=== PATIENT | female | born 1940 | race American Indian/Alaskan Native ===

== ENCOUNTER 2017-12-28 12:58 | Emergency (ER) | payer MEDICARE ==
[2017-12-28 12:59] VITALS: BMI 31.2
--- NOTE | 2017-12-28 14:50 | ED PDOC ---
Arrival/HPI - General Chief Complaint: Weakness/Neurological Deficit Time Seen by Provider: 12/28/17 14:40 Historian: Patient - History of Present Illness Narrative History of Present Illness (Text): 12/28/17 14:45 Kaleigh Trevino is a 77 year old female, whose past medical history includes hypertension, breast CA, gastric ulcers, and cardiac stents, who presents to the emergency department complaining of chest pain worsened only by coughs for the past week. Patient states that she has had persistent coughs for the past 2 months. She reports that she has not seen her PMD. Patient denies any shortness of breath or any other complaint at this time. PMD: Dr. Langley 12/28/17 17:36 Time/Duration: < week Symptom Onset: Gradual Symptom Course: Unchanged Severity Level: Mild Activities at Onset: Light Context: Home Past Medical History - Provider Review Nursing Documentation Reviewed: Yes - Infectious Disease Hx of Infectious Diseases: None - Tetanus Immunization Tetanus Immunization: Unknown - Cardiac Hx Cardiac Disorders: Yes Hx Hypertension: Yes Hx Pacemaker: No - Pulmonary Hx Respiratory Disorders: Yes Hx Bronchitis: Yes - Neurological Hx Neurological Disorder: Yes (SYNCOPE 08-24-16) Hx Dizziness: Yes (08-29-16) - HEENT Hx HEENT Disorder: Yes (WEARS RX GLASSES) - Renal Hx Renal Disorder: No - Endocrine/Metabolic Hx Endocrine Disorders: Yes (hypoglycemia 07/02/14) - Hematological/Oncological Hx Blood Disorders: Yes Hx Cancer: Yes (right mastectomy) Hx Chemotherapy: Yes (and radiation over 10 yrs ago) - Integumentary Hx Dermatological Disorder: No - Musculoskeletal/Rheumatological Hx Musculoskeletal Disorders: Yes (LUMBAR SPONDYLOSIS) Hx Falls: Yes (08-29-16) - Gastrointestinal Hx Gastrointestinal Disorders: Yes Hx Gastroesophageal Reflux: Yes Other/Comment: SBO x 2 - Genitourinary/Gynecological Hx Genitourinary Disorders: Yes (ovarian cyst,RIGHT MASTECTOMY WITH CHEMO AND RADIATION) Hx Urinary Tract Infection: Yes - Psychiatric Hx Psychophysiologic Disorder: No Hx Emotional Abuse: No Hx Physical Abuse: No Hx Substance Use: No - Past Surgical History Past Surgical History: No Previous - Surgical History Hx Mastectomy: Yes (RIGHT) - Anesthesia Hx Anesthesia Reactions: No Hx Malignant Hyperthermia: No - Suicidal Assessment Feels Threatened In Home Enviroment: No Family/Social History - Physician Review Nursing Documentation Reviewed: Yes Family/Social History: No Known Family HX Smoking Status: Never Smoked Hx Alcohol Use: No Hx Substance Use: No Hx Substance Use Treatment: No Allergies/Home Meds Allergies/Adverse Reactions: Allergies No Known Allergies Allergy (Verified 08/29/16 18:21) Home Medications: Home Meds Medication Instructions Recorded Confirmed Amlodipine Besylate [Norvasc] 10 mg PO DAILY 06/24/16 09/01/16 Atenolol [Tenormin] 25 mg PO HS 06/24/16 09/01/16 Dexlansoprazole [Dexilant] 60 mg PO DAILY 06/24/16 09/01/16 Aspirin [Adult Low Dose Aspirin EC] 81 mg PO 09/01/16 Isosorbide Mononitrate [Imdur] 60 mg PO DAILY 09/01/16 09/01/16 Review of Systems - Review of Systems Constitutional: absent: Fevers, Night Sweats Eyes: absent: Vision Changes ENT: absent: Hearing Changes Respiratory: absent: SOB, Cough Cardiovascular: Chest Pain (with coughing only). absent: Palpitations, Edema, Calf Pain, ALLRED, Orthopnea, Syncope Gastrointestinal: absent: Abdominal Pain, Constipation, Diarrhea Genitourinary Female: absent: Dysuria, Frequency Musculoskeletal: absent: Arthralgias, Back Pain Skin: absent: Rash, Pruritis Neurological: absent: Headache Endocrine: absent: Diaphoresis Hemo/Lymphatic: absent: Adenopathy Psychiatric: absent: Anxiety Physical Exam Vital Signs Reviewed: Yes Vital Signs Temp Pulse Resp BP Pulse Ox 12/28/17 16:54 80 18 142/77 98 12/28/17 15:00 97.9 F 75 20 133/76 98 Temperature: Afebrile Blood Pressure: Normal Pulse: Regular Respiratory Rate: Normal Appearance: Positive for: Well-Appearing, Non-Toxic, Comfortable Pain Distress: None Mental Status: Positive for: Alert and Oriented X 3 - Systems Exam Head: Present: Atraumatic, Normocephalic Pupils: Present: PERRL Extroacular Muscles: Present: EOMI Conjunctiva: Present: Normal Mouth: Present: Moist Mucous Membranes Neck: Present: Normal Range of Motion Respiratory/Chest: Present: Clear to Auscultation, Good Air Exchange. No: Respiratory Distress, Accessory Muscle Use Cardiovascular: Present: Regular Rate and Rhythm, Normal S1, S2. No: Murmurs Abdomen: Present: Normal Bowel Sounds. No: Tenderness, Distention, Peritoneal Signs Back: Present: Normal Inspection Upper Extremity: Present: Normal Inspection. No: Cyanosis, Edema Lower Extremity: Present: Normal Inspection. No: Edema Neurological: Present: GCS=15, CN II-XII Intact, Speech Normal Skin: Present: Warm, Dry, Normal Color. No: Rashes Psychiatric: Present: Alert, Oriented x 3, Normal Insight, Normal Concentration Medical Decision Making ED Course and Treatment: 12/28/17 14:56 Impression: 77 year old female complaining of chest pain worsened only by coughs for the past week. Differential Diagnosis included but are not limited to: Plan: -- Chest X-ray -- Labs -- Tati Renteria -- Reassess and disposition Prior Visits: Notes and results from previous visits were reviewed. Patient was last seen in the emergency department on 08/29/16 for lightheadedness. Patient was admitted to hospitalist care for further evaluation. Progress Notes: EKG: Ordered, reviewed, and independently interpreted the EKG. Rate : 76 BPM Rhythm : NSR Interpretation : LVH, no acute ST changes 12/28/17 15:06 12/28/17 16:32 Patient only has chest pain when coughing. Influenza negative. Cxray shows " No active pulmonary disease. COPD." No complaint of shortness of breath. Well appearing with normal vitals. Will dc with cough medication. - Lab Interpretations Lab Results: 12/28/17 15:00 12/28/17 15:40 Lab Results 12/28/17 15:40: Sodium 144, Potassium 3.7, Chloride 107, Carbon Dioxide 28, Anion Gap 12, BUN 14, Creatinine 0.8, Est GFR ( Amer) > 60, Est GFR (Non- Af Amer) > 60, Random Glucose 96, Calcium 10.0, Total Bilirubin 0.2, AST 18, ALT 24, Alkaline Phosphatase 58, Troponin I < 0.01, Total Protein 6.6, Albumin 3.6, Globulin 2.9, Albumin/Globulin Ratio 1.2 12/28/17 15:00: Influenza Typ A,B (EIA) Negative for flu a/b 12/28/17 15:00: WBC 12.1 H D, RBC 4.00, Hgb 11.2 L, Hct 35.6 L, MCV 89.0, MCH 28.0, MCHC 31.5, RDW 15.4 H, Plt Count 238, MPV 9.5, Gran % 71.2 H, Lymph % ( Auto) 21.3 L, Williams % (Auto) 6.5 H, Eos % (Auto) 0.7 L, Baso % (Auto) 0.3, Gran # 8.62 H, Lymph # (Auto) 2.6, Williams # (Auto) 0.8 H, Eos # (Auto) 0.1, Baso # ( Auto) 0.04 - RAD Interpretation Radiology Orders: 12/28/17 14:40 CHEST TWO VIEWS (PA/LAT) [RAD] Stat - Medication Orders Current Medication Orders: Discontinued Medications Benzonatate (Tessalon Perles) 100 mg PO STAT STA Stop: 12/28/17 14:42 Last Admin: 12/28/17 15:00 Dose: 100 mg - Scribe Statement The provider has reviewed the documentation as recorded by the Tootieibe Katerina Adrian Provider Scribe Attestation: All medical record entries made by the Scribe were at my direction and personally dictated by me. I have reviewed the chart and agree that the record accurately reflects my personal performance of the history, physical exam, medical decision making, and the department course for this patient. I have also personally directed, reviewed, and agree with the discharge instructions and disposition. Disposition/Present on Arrival - Present on Arrival Any Indicators Present on Arrival: No History of DVT/PE: No History of Uncontrolled Diabetes: No Urinary Catheter: No History of Decub. Ulcer: No History Surgical Site Infection Following: None - Disposition Have Diagnosis and Disposition been Completed?: Yes Diagnosis: Cough Disposition: HOME/ ROUTINE Disposition Time: 16:34 Patient Plan: Discharge Patient Problems: Current Active Problems Problem Status Onset Cough Acute Condition: GOOD Discharge Instructions (ExitCare): Upper Respiratory Infection (ED), Acute Cough (ED) Additional Instructions: Follow-up with PMD within 2 days. Return to ED if condition worsens. Take full course of antibiotics. Use cough medication as needed for cough Prescriptions: Azithromycin 250 mg PO DAILY #6 tablet Benzonatate [Tessalon Perles] 100 mg PO TID PRN #20 sgl PRN Reason: Cough Referrals: Anthony Langley MD [Primary Care Provider] - Follow up with primary Forms: [employer] ([place])
[2017-12-28 15:20] LABS: BASO # 0.04 K/mm3 (0.0-2.0); BASO % 0.3 % (0.0-3.0); EOS # 0.1 (0.0-0.7); EOS % 0.7 % (1.5-5.0); GRAN # 8.62 (1.4-6.5); GRAN % 71.2 % (50.0-68.0); HEMOGLOBIN 11.2 g/dL (12.0-16.0); LYMPH # 2.6 (1.2-3.4); LYMPH % 21.3 % (22.0-35.0); MEAN CORPUSCULAR HGB CONC 31.5 g/dl (31.0-37.0); MEAN PLATELET VOLUME 9.5 fl (7.0-11.0); MONO # 0.8 (0.1-0.6); MONO % 6.5 % (1.0-6.0); RED CELL DISTRIBUTION WIDTH 15.4 % (11.5-14.5); WHITE BLOOD COUNT 12.1 10^3/ul (4.5-11.0)
[2017-12-28 15:38] VITALS: TEMP 97.9; O2SAT 98
[2017-12-28 16:15] LABS: ALB/GLOB RATIO 1.2 (1.1-1.8); ALBUMIN 3.6 g/dL (3.0-4.8); ALT/SGPT 24 U/L (7-56); AST/SGOT 18 U/L (14-36); BLOOD UREA NITROGEN 14 mg/dL (7-21); GFR AFRICAN-AMERICAN > 60; GFR NON-AFRICAN AMERICAN > 60
--- NOTE | 2017-12-28 16:20 | RAD ---
HISTORY: COMPARISON: 10/05/2017. TECHNIQUE: Chest PA and lateral FINDINGS: LINES AND TUBES: None. LUNG AND PLEURA: The lungs are well inflated and clear. The lungs are hyperinflated and there is peribronchial thickening with chronic changes in both lungs. HEART AND MEDIASTINUM: The heart is not enlarged. The hilar and mediastinal contours are within normal limits. SKELETAL STRUCTURES: The bony structures are within normal limits for the patient's age. VISUALIZED UPPER ABDOMEN: Normal. OTHER FINDINGS: There are surgical clips in bilateral axilla. IMPRESSION: No active pulmonary disease. COPD.
[2017-12-28 16:27] LABS: TROPONIN I < 0.01 ng/mL
[2017-12-28 16:55] VITALS: BP 142/77; PULSE 80; RESP 18
--- NOTE | 2017-12-29 09:58 | CARD ---
APPROVED REPORT EKG Measurement Heart [id number] <Conclusion> Normal sinus rhythm Left ventricular hypertrophy with repolarization abnormality ASMI, old No change
== END 2017-12-28 17:45 | disposition home or self-care (01) ==
LOC: ED 12:58
DX: R05 Cough (principal); I10 Essential (primary) hypertension; Z95.5 Presence of coronary angioplasty implant and graft

== ENCOUNTER 2018-02-20 10:12 | Emergency (ER) | payer MEDICARE ==
[2018-02-20 10:12] VITALS: BMI 31.2
[2018-02-20 10:34] VITALS: TEMP 98.6
--- NOTE | 2018-02-20 11:19 | ED PDOC ---
Arrival/HPI - General Chief Complaint: Cough, Cold, Congestion Time Seen by Provider: 02/20/18 11:12 - History of Present Illness Narrative History of Present Illness (Text): 02/20/18 16:21 Patient is a 77 yo female presents with cough for 6 months. States that she has not had any chest pain or shortness of breath. Denies fever or chills. Denies abdominal pain. Denies nausea or vomiting. Denies leg pain or swelling. Denies rash. Denies hemoptysis. Denies any pleuritic pain. Time/Duration: > month Past Medical History - Provider Review Nursing Documentation Reviewed: Yes - Infectious Disease Hx of Infectious Diseases: None - Tetanus Immunization Tetanus Immunization: Unknown - Reproductive Menopause: Yes - Cardiac Hx Cardiac Disorders: Yes Hx Hypertension: Yes Hx Pacemaker: No - Pulmonary Hx Respiratory Disorders: Yes Hx Bronchitis: Yes - Neurological Hx Neurological Disorder: Yes (SYNCOPE 08-24-16) Hx Dizziness: Yes (08-29-16) - HEENT Hx HEENT Disorder: Yes (WEARS RX GLASSES) - Renal Hx Renal Disorder: No - Endocrine/Metabolic Hx Endocrine Disorders: Yes (hypoglycemia 07/02/14) - Hematological/Oncological Hx Blood Disorders: Yes Hx Cancer: Yes (right mastectomy) Hx Chemotherapy: Yes (and radiation over 10 yrs ago) - Integumentary Hx Dermatological Disorder: No - Musculoskeletal/Rheumatological Hx Musculoskeletal Disorders: Yes (LUMBAR SPONDYLOSIS) Hx Falls: Yes (08-29-16) - Gastrointestinal Hx Gastrointestinal Disorders: Yes Hx Gastroesophageal Reflux: Yes Other/Comment: SBO x 2 - Genitourinary/Gynecological Hx Genitourinary Disorders: Yes (ovarian cyst,RIGHT MASTECTOMY WITH CHEMO AND RADIATION) Hx Urinary Tract Infection: Yes - Psychiatric Hx Psychophysiologic Disorder: No Hx Emotional Abuse: No Hx Physical Abuse: No Hx Substance Use: No - Past Surgical History Past Surgical History: No Previous - Surgical History Hx Mastectomy: Yes (RIGHT) - Anesthesia Hx Anesthesia Reactions: No Hx Malignant Hyperthermia: No - Suicidal Assessment Feels Threatened In Home Enviroment: No Family/Social History - Physician Review Nursing Documentation Reviewed: Yes Family/Social History: No Known Family HX Smoking Status: Never Smoked Hx Alcohol Use: No Hx Substance Use: No Hx Substance Use Treatment: No Allergies/Home Meds Allergies/Adverse Reactions: Allergies No Known Allergies Allergy (Verified 02/20/18 10:34) Home Medications: Home Meds Medication Instructions Recorded Confirmed Amlodipine Besylate [Norvasc] 10 mg PO DAILY 06/24/16 02/20/18 Atenolol [Tenormin] 25 mg PO HS 06/24/16 02/20/18 Dexlansoprazole [Dexilant] 60 mg PO DAILY 06/24/16 02/20/18 Aspirin [Adult Low Dose Aspirin EC] 81 mg PO DAILY MDD 81 09/01/16 02/20/18 Isosorbide Mononitrate [Imdur] 60 mg PO DAILY 09/01/16 02/20/18 Review of Systems - Review of Systems Constitutional: absent: Fatigue, Weight Change, Fevers Respiratory: Cough. absent: SOB, Sputum, Wheezing Cardiovascular: absent: Chest Pain, Palpitations, Edema, Calf Pain, ALLRED Gastrointestinal: absent: Abdominal Pain Genitourinary Female: absent: Frequency, Hematuria Musculoskeletal: absent: Back Pain, Neck Pain Skin: absent: Rash Neurological: absent: Headache, Dizziness, Focal Weakness Endocrine: absent: Polyuria Hemo/Lymphatic: absent: Easy Bleeding Psychiatric: absent: Depression Physical Exam - Physical Exam Narrative Physical Exam (Text): 02/20/18 11:18 Head: Atraumatic. Normocephalic. Eyes: PERRL. EOMI. Conjunctivae are not pale. ENT: Mucous membranes are moist and intact. Oropharynx is clear and symmetric. Neck: Supple. Full ROM. No JVD. No lymphadenopathy. No thyromegaly. No meningeal signs. Cardiovascular: Regular rate. Regular rhythm. No pathologic murmur noted.Distal pulses are 2+ and symmetric. Pulmonary/Chest: No evidence of respiratory distress. Clear to auscultation bilaterally. No wheezing, rales or rhonchi. Abdominal: Soft and non-distended. There is no tenderness. No rebound, guarding, or rigidity. No organomegaly. Good bowel sounds. Back: No CVA tenderness. Extremities: No edema. No cyanosis. No clubbing. Full range of motion in all extremities. No calf tenderness. Skin: Skin is warm and dry. No petechiae. No purpura. Neurological: Alert, awake, and oriented. Motor and sensory exam intact. Psychiatric: Good eye contact. Normal interaction, affect, and behavior. Vital Signs Reviewed: Yes Vital Signs Temp Pulse Resp BP Pulse Ox 02/20/18 12:31 73 18 154/77 H 100 02/20/18 10:28 98.6 F 61 16 128/84 99 Temperature: Afebrile Pulse: Regular Appearance: Positive for: Well-Appearing, Non-Toxic, Comfortable Pain Distress: None Mental Status: Positive for: Alert and Oriented X 3 Medical Decision Making ED Course and Treatment: 02/20/18 16:29 Patient reports cough for several months. States that her daughter was getting checked here in ED currently so "I figured I would get checked too". She denies any acute or worsening of any symptoms. On exam, no chest pain, no wheezing, no hypoxia. No leg pain or swelling. No fever. No night sweats. She has PRIOR HISTORY of ca, but none actively as per her. Is not receiving treatments of any kind currently. Chest xray unremarkable as per radiology. Limitations of chest xray reviewed with patient and family, stressed need for close follow-up of symptoms with her PMD, who I have discussed case with. - Lab Interpretations Lab Results: Lab Results 02/20/18 11:27: Influenza Typ A,B (EIA) Negative for flu a/b - RAD Interpretation Radiology Orders: 02/20/18 11:18 CHEST TWO VIEWS (PA/LAT) [RAD] Stat - Scribe Statement The provider has reviewed the documentation as recorded by the Scribe Dottie Lemus Provider Scribe Attestation: All medical record entries made by the Scribe were at my direction and personally dictated by me. I have reviewed the chart and agree that the record accurately reflects my personal performance of the history, physical exam, medical decision making, and the department course for this patient. I have also personally directed, reviewed, and agree with the discharge instructions and disposition. Disposition/Present on Arrival - Present on Arrival Any Indicators Present on Arrival: No History of DVT/PE: No History of Uncontrolled Diabetes: No Urinary Catheter: No History of Decub. Ulcer: No History Surgical Site Infection Following: None - Disposition Have Diagnosis and Disposition been Completed?: Yes Diagnosis: Cough, Bronchitis Disposition: HOME/ ROUTINE Disposition Time: 12:25 Patient Plan: Discharge Condition: GOOD Discharge Instructions (ExitCare): Acute Bronchitis, Adult (DC), Cough, Adult ( DC) Additional Instructions: For any fever, any chest pain, any abdominal pain, any nausea or vomiting, any persistence or worsening of any symptoms, get rechecked. Limitations of chest xray have been reviewed with you, you must get rechecked by your primary care doctor for any persistent or worsening of symptoms. Prescriptions: Benzonatate [Tessalon Perles] 100 mg PO BID PRN #10 sgl PRN Reason: Cough Azithromycin [Zithromax] 250 mg PO DAILY #6 tab Referrals: Anthony Langley MD [Staff Provider] - Follow up with primary Forms: [employer] ([place]ian)
--- NOTE | 2018-02-20 11:53 | RAD ---
HISTORY: cough for 6 months COMPARISON: 12/28/2017 TECHNIQUE: Chest PA and lateral FINDINGS: LUNGS: No active pulmonary disease. PLEURA: No significant pleural effusion identified. No pneumothorax apparent. CARDIOVASCULAR: Normal. OSSEOUS STRUCTURES: Wedge deformities are seen in the mid thoracic spine. These are unchanged VISUALIZED UPPER ABDOMEN: Normal. OTHER FINDINGS: None. IMPRESSION: No acute findings
[2018-02-20 12:33] VITALS: BP 154/77; PULSE 73; RESP 18; O2SAT 100
== END 2018-02-20 12:33 | disposition home or self-care (01) ==
LOC: ED 10:12
DX: J20.9 Acute bronchitis, unspecified (principal); R05 Cough

== ENCOUNTER 2019-03-28 08:27 | Outpatient (CLI) | payer MEDICARE | END 2019-03-28 08:28 | disposition home or self-care (01) | LOC: LAB 08:27 ==